=== PATIENT | male | born 1990 | race Caucasian/White ===

== ENCOUNTER 2017-02-25 18:35 | Inpatient (IN) | payer OTHER ==
[~2017-02-25] VITALS: Ht 160 cm; Wt 68.0 kg
--- NOTE | ~2017-02-25 | PN ---
Unit #: [id number] #: [id number] Patient: ARJUN GÓMEZ [id number] [facility] [address] [place] [address] [id number] MR#: [id number] NAME: ARJUN GÓMEZ ROOM: [facility] Age: 26 Sex: M Admission Date: 02/25/2017 : 1990 Attending Physician: Vipul Atwood M.D. Admitting Physician: Vipul Atwood M.D. Primary Care Physician: Primary Care Physician Tonja SARMIENTO PROGRESS NOTES DATE 02/27/2017 DISCUSSION Arjun Gómez is a 26-year-old male. The patient interviewed, chart reviewed. Obtained information from nursing staff. The patient compliant and cooperative. Mood sad, dysphoric, flat affect but able to answer questions appropriately. Vital signs stable 98.4, 56, 98/60. The patient tolerating medication fairly well but still sad, depressed, withdrawn, isolative, guarded. Complete review of systems unremarkable. MENTAL STATUS EXAMINATION General appearance, the patient dressed casually. Attention span and concentration fair. Oriented to time, place and person. Mood and affect labile. Speech monotone. Thought process concrete. The patient denied any thoughts of harming self or others. Recent and remote memory poor. Insight and judgement poor. DIAGNOSES Mood disorder NOS. ASSESSMENT/PLAN Advise to continue with current combination of Prozac, Zyprexa, and trazodone. If needed consider further adjustment of medication. Dictated by... Diony Rankin/ld TD: 03/01/2017 23:47 JOB #: [id number] Unit #: [id number] #: [id number] Patient: ARJUN GÓMEZ TORSTEN PROGRESS NOTES Page 1 of 1 X Vipul Atwood MD PROGRESS NOTE
--- NOTE | ~2017-02-25 | PN ---
Unit #: [id number] #: [id number] Patient: ARJUN GÓMEZ [id number] [facility] [address] [place] [address] [id number] I MR#: [id number] NAME: ARJUN GÓMEZ ROOM: 84 Age: 26 Sex: M Admission Date: 02/25/2017 : 1990 Attending Physician: Vipul Atwood M.D. Admitting Physician: Vipul Atwood M.D. Primary Care Physician: Primary Care Physician Tonja SARMIENTO PROGRESS NOTES DATE 02/26/2017 DISCUSSION Arjun Gómez is a 26-year-old male seen on 02/26/2017. Patient interviewed. Chart reviewed. Obtained information from nursing staff. Patient was compliant, cooperative. Mood sad, depressed, withdrawn, isolated, paranoid. Complete review of system unremarkable. MENTAL STATUS EXAMINATION General appearance, patient dressed casually. Attention span, concentration fair. Oriented in time, place and person. Mood and affect labile. Speech monotone. Thought process concrete, withdrawn, isolative, guarded, suicidal ideation. Recent and remote memory poor. Insight and judgement poor. DIAGNOSES 1. Mood disorder NOS. 2. Psychosis NOS. 3. Cannabis abuse, moderate. ASSESSMENT/PLAN Advised to start patient on Prozac 20 mg daily, Zyprexa 5 mg at bedtime. If needed, consider further adjustment of medication. Continue with inpatient programming. Dictated by... Diony Rankin/ajit TD: 02/27/2017 16:52 JOB #: [id number] Unit #: [id number] #: [id number] Patient: ARUJN GÓMEZ PROGRESS NOTES Page 1 of 1 X Vipul Atwood MD X PROGRESS NOTE
--- NOTE | ~2017-02-25 | PN ---
Unit #: [id number] #: [id number] Patient: ARJUN GÓMEZ [id number] [facility] [address] [place] [address] [id number] I MR#: [id number] NAME: ARJUN GÓMEZ ROOM: 84 Age: 26 Sex: M Admission Date: 02/25/2017 : 1990 Attending Physician: Vipul Atwood M.D. Admitting Physician: Diony Rankin NOTES DATE OF SERVICE: 02/27/2017 DISCUSSION Arjun Gómez is a 26-year-old male. The patient interviewed, chart reviewed, and obtained information from nursing staff. The patient was compliant and cooperative. Mood is sad, dysphoric, flat affect, but able to answer questions appropriately. Vital signs; stable. Temperature 98.4, pulse 56, blood pressure 98/60. The patient is tolerating medication fairly well, but still sad, depressed, withdrawn, isolative, guarded. REVIEW OF SYSTEMS Complete review of systems unremarkable. MENTAL STATUS EXAMINATION General appearance, the patient dressed casually. Attention span and concentration, fair. Oriented in time, place, and person. Mood and affect, labile. Speech, monotone. Thought process, concrete. The patient denied any thoughts of harming self or others. Recent and remote memory, poor. Insight and judgment, poor. DIAGNOSIS Mood disorder, not otherwise specified. ASSESSMENT AND PLAN Advised to continue with current combination of Prozac, Zyprexa, and trazodone. If needed, consider further adjustment of medication. Dictated by... Diony Rankin/yo TD: 03/02/2017 01:56 JOB #: [id number] Unit #: [id number] #: [id number] Patient: ARJUN GÓMEZ TORSTEN JARRELL NOTES Page 1 of 1 X Vipul Atwood MD PROGRESS NOTE
--- NOTE | ~2017-02-25 | HP ---
Unit #: [id number] #: [id number] Patient: ARJUN BEAVER [id number] [place] [address] [id number] MR#: [id number] NAME: ARJUN BEAVER ROOM: P184 Age: 26 Sex: M Admission Date: 02/25/2017 : 1990 Attending Physician: Vipul Atwood M.D. Admitting Physician: Vipul Atwood M.D. Primary Care Physician: Primary Care Physician No HISTORY AND PHYSICAL History and physical completed on 02/26/2017. HISTORY OF PRESENT ILLNESS Arjun is a 26-year-old male, admitted on 02/25/2017 to [facility] for depression and suicidal ideation. PAST MEDICAL HISTORY None. PAST SURGICAL HISTORY None. SOCIAL HISTORY Denies tobacco, alcohol, or illegal drug use. He is currently single and living with his mother. FAMILY HISTORY Noncontributory. REVIEW OF SYSTEMS CONSTITUTIONAL: No fever or chills. HEENT: Denies any sore throat, ear pain or runny nose. CARDIOVASCULAR: Denies chest pain, irregular heart rhythm or palpitations. CHEST: Denies shortness of breath or cough. No hemoptysis. GASTROINTESTINAL: Denies nausea, vomiting, diarrhea or chronic constipation. ENDOCRINE: Denies history of increased thirst or urination. No recent significant weight loss or gain. GENITOURINARY: Denies dysuria, frequency, or hematuria. SKIN: Denies any rashes. HEMATOLOGIC: Denies history of increased bleeding or bruising. MUSCULOSKELETAL: Denies any hot, swollen joints. No generalized muscle pain. NEUROLOGIC: Denies problems with vision or speech. No frequent, severe headaches. No numbness, tingling or weakness in any extremities. Denies loss of bladder or bowel control. CURRENT MEDICATIONS None. ALLERGIES None. Unit #: [id number] #: [id number] Patient: ARJUN BEAVER PHYSICAL EXAMINATION GENERAL: Alert, oriented, no acute distress. VITAL SIGNS: Blood pressure 125/68, heart rate 88, respirations 16, and temperature 97.9. HEIGHT: 5 feet 3 inches. WEIGHT: 150 pounds. SKIN: Warm and dry without rash or lesion. HEENT: Normocephalic. TMs not viewed. Oral and nasal passages clear. Conjunctivae clear. PERRLA. EOMs intact. NECK: Supple without lymphadenopathy or thyromegaly. HEART: Regular rate and rhythm without murmur. LUNGS: Clear. ABDOMEN: Soft, nontender. : Not done. EXTREMITIES: No evidence of cyanosis, clubbing or edema. Moves all without focal deficit. NEUROLOGICAL: Grossly within normal limits. Cranial Nerves: II: Visual sorenson are intact. III, IV AND : Extraocular movements are intact. Pupils are equal, round and reactive to light. V: Facial sensation is grossly normal. VII: Facial movements and expression are normal. VIII: Auditory acuity grossly intact. IX, X: Uvula is midline. Phonation is normal. XI: Patient shrugs shoulders and turns head normally. XII: Tongue protrudes in the midline. Sensory and Motor Function: Sensory and motor sensation is grossly normal. Motor: moves all extremities well. Coordination: Gait is normal. Deep Tendon Reflexes: Intact. IMPRESSION Psychiatric admission. RECOMMENDATIONS Psychiatric, per psychiatrist. MEDICAL No contraindications to participating in facility's activities. MEDICAL PROGNOSIS Good. MEDICAL CONDITION Stable. Dictated by... Adamaris López/pito TD: 02/27/2017 05:36 JOB #: [id number] Unit #: [id number] #: [id number] Patient: ARJUN BEAVER HISTORY AND PHYSICAL Page 1 of 1 X DARYN FORTE APRN X HISTORY AND PHYSICAL
--- NOTE | ~2017-02-25 | PN ---
Unit #: [id number] #: [id number] Patient: ARJUN GÓMEZ [id number] [facility] [address] [place] [address] [id number] I MR#: [id number] NAME: ARJUN GÓMEZ ROOM: 84 Age: 26 Sex: M Admission Date: 02/25/2017 : 1990 Attending Physician: Vipul Atwood M.D. Admitting Physician: Vipul Atwood M.D. Primary Care Physician: Primary Care Physician Tonja JARRELL NOTES DATE 02/28/2017 DISCUSSION Arjun Gómez is a 26-year-old male, seen on 02/28/2017. The patient interviewed, chart reviewed, and obtained information from the nursing staff. The patient was compliant and cooperative. Mood was labile. The patient was still somewhat mad, angry, upset. Vital signs, 98.4, 61, and 95/62. The patient reports that he does not want to be in the mad house, crazy house. The patient scheduled to have a family session this afternoon, talked to the patient's mom over the phone, telephone number [phone], with the patient's permission and mom was concerned about the patient's behavior lately, and will visit this afternoon. REVIEW OF SYSTEMS Complete review of systems unremarkable. MENTAL STATUS EXAMINATION General appearance: Patient dressed in hospital attire. Attention span and concentration, fair. Oriented in time, place, and person. Mood and affect, sad and dysphoric. Mood labile. Speech, monotone. Thought process, concrete. The patient denied any thoughts of harming self or others but mood lability, irritability. Recent and remote memory, poor. Insight and judgment, poor. DIAGNOSIS Bipolar mood disorder, NOS. ASSESSMENT/PLAN Advised to continue with the current medication and if needed consider further adjustment of medication. The patient is currently on Prozac, Zyprexa, and trazodone combination. Dictated by... Vipul Atwood M.D. Unit #: [id number] #: [id number] Patient: ARJUN GÓMEZ RAY/pito TD: 03/02/2017 07:44 JOB #: [id number] [facility] PROGRESS NOTES Page 1 of 1 X Vipul Atwood MD PROGRESS NOTE
--- NOTE | ~2017-02-25 | DS ---
Unit #: [id number] #: [id number] Patient: CYDNEY BEAVER [id number] [facility] [address] [place] [address] [id number] I MR#: [id number] NAME: CYDNEY BEAVER ROOM: 84 Age: 26 Sex: M Admission Date: 02/25/2017 : 1990 Discharge Date: 03/02/2017 Attending Physician: Vipul Atwood M.D. Primary Care Physician: Primary Care Physician No DISCHARGE SUMMARY REASON FOR ADMISSION Depression. DIAGNOSTIC STUDIES LABORATORY RESULTS: Unremarkable. HOSPITAL COURSE The patient was admitted to inpatient unit on 02/25/2017 and discharged on 03/02/2017. The patient was treated on the inpatient unit with expressive therapy, psychoeducation, psychotherapy, structured milieu, and chemical dependency group. The patient showed improvement in his mood. Subsequently, the patient was discharged and follow up in outpatient program. DISCHARGE MEDICATIONS Zyprexa 5 mg at bedtime for mood stabilization and Prozac 20 mg at bedtime for depressive symptom. DISCHARGE DIAGNOSES Psychiatric: Major depressive disorder, recurrent, severe, F33.2; cannabis abuse, moderate, F12.20. Secondary diagnosis: Deferred. Medical diagnosis: Obesity. Stressors: Psychosocial stressor. DISCHARGE INSTRUCTIONS The patient to follow up in outpatient clinic as per hospital social worker. CONDITION ON DISCHARGE The patient was pleasant and cooperative. Denied any psychotic symptom or any suicidal ideation. PROGNOSIS Guarded. DIET AND ACTIVITY As tolerated. Dictated by... Unit #: [id number] #: [id number] Patient: CYDNEY BEAVER Diony RankinC/ranjitl TD: 03/02/2017 17:50 JOB #: [id number] DISCHARGE SUMMARY Page 1 of 1 X Vipul Atwood MD X DISCHARGE SUMMARY
--- NOTE | ~2017-02-25 | PN ---
Unit #: [id number] #: [id number] Patient: ARJUN GÓMEZ [id number] [facility] [address] [place] [address] [id number] I MR#: [id number] NAME: ARJUN GÓMEZ ROOM: 84 Age: 26 Sex: M Admission Date: 02/25/2017 : 1990 Attending Physician: Vipul Atwood M.D. Admitting Physician: Diony Rankin PROGRESS NOTES DATE OF SERVICE: 03/01/2017 DISCUSSION Arjun Gómez is a 26-year-old male, seen on 03/01/2017. The patient interviewed, chart reviewed, and obtained information from nursing staff. The patient's vital signs stable; temperature 98.4, heart rate 75, and blood pressure 108/74. The patient's mood was labile, anxious, nervous and became agitated, yelling at the person, but redirectable. REVIEW OF SYSTEMS Complete review of systems unremarkable. MENTAL STATUS EXAMINATION General appearance, the patient dressed in hospital attire. Attention span and concentration, poor. Oriented in place and person. Mood and affect, labile. Speech, monotone. Thought process, concrete. The patient denied any thoughts of harming self or others, but mood lability. Recent and remote memory, poor. Insight and judgment, poor. DIAGNOSIS Bipolar mood disorder, not otherwise specified. ASSESSMENT AND PLAN Advised to continue with current medication and therapeutic protocol. If needed, consider further adjustment of medication. Dictated by... Diony Rankin/yo TD: 03/01/2017 17:24 JOB #: [id number] Unit #: [id number] #: [id number] Patient: ARJUN GÓMEZ TORSTEN JARRELL NOTES Page 1 of 1 X Vipul Atwood MD PROGRESS NOTE
--- NOTE | ~2017-02-25 | PA ---
Unit #: [id number] #: [id number] Patient: ARJUN GÓMEZ [id number] [facility] [address] [place] [address] [id number] I MR#: [id number] NAME: ARJUN GÓMEZ ROOM: P184 Age: 26 Sex: M Admission Date: 02/25/2017 : 1990 Date of Assessment: 02/26/2017 Attending Physician: Vipul Atwood M.D. Admitting Physician: Vipul Atwood M.D. Primary Care Physician: Primary Care Physician No PSYCHIATRIC ASSESSMENT INFORMANTS The patient reliability, fair informant and chart reliability, good. CHIEF COMPLAINT Depression. HISTORY OF PRESENT ILLNESS Arjun Gómez is a 26-year-old male, presented with the above-mentioned complaint. The patient received outpatient services through [facility]. Lives at home with mother. The patient presented with depressive symptom. He stated that he left work early as he was not mentally healthy. The patient reported fluctuating appetite, racing thoughts, crying often. 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 The patient reported having racing thoughts, mood lability, thoughts of harming himself. Mother reported that two days ago he stated he will kill himself and take her too and her dog. The patient reported not feeling safe, having suicidal ideation. Denied any homicidal ideation. Somewhat guarded, paranoid, and racing thoughts. Needing inpatient admission at this time for psychiatric stabilization. PAST PSYCHIATRIC HISTORY Remarkable for history of outpatient services through [facility]. No history of any suicide attempt or any inpatient treatment. FAMILY HISTORY AND SOCIAL HISTORY The patient lives with mother, has a good support system. Family psychiatric illness is remarkable for history of heroin abuse in sister. MEDICAL HISTORY Unremarkable for any chronic medical illness. Musculoskeletal; muscle strength and tone, no atrophy or abnormal movement. Gait normal. MEDICATION HISTORY None. ALLERGIES No known drug allergies. SUBSTANCE ABUSE HISTORY History of marijuana abuse, age of onset 24, occasional use. History of blackout. No history of any IV drug abuse, HIV, hepatitis, or withdrawal symptom. Unit #: [id number] #: [id number] Patient: ARJUN GÓMEZ REVIEW OF SYSTEMS HEENT: Eyes, clear. Ears, nose, mouth, and throat; clear. CARDIOVASCULAR: Unremarkable. RESPIRATORY: Unremarkable. GI: Unremarkable. : Unremarkable. SKIN: Unremarkable. LYMPH NODE: Unremarkable. NEUROLOGIC: Unremarkable. ENDOCRINE: Unremarkable. HEMATOLOGIC: Unremarkable. ALLERGIC/IMMUNOLOGIC: Unremarkable. MUSCULOSKELETAL: Muscle strength and tone, no atrophy or abnormal movement. Gait normal. MENTAL STATUS EXAMINATION CONSTITUTIONAL: Measurement of vital signs; temperature 98.4, heart rate 66, respiratory rate 16, oxygen saturation 100%, and blood pressure 110/63. Height 5 feet 3 inches and weight 150 pounds. GENERAL APPEARANCE: The patient dressed casually. The patient did not show any facial deformity. MUSCULOSKELETAL: Please see above. PSYCHIATRIC EXAMINATION Description of speech; regular rate, normal volume, normal articulation, and coherent. Description of thought process, circumstantial. Description of association; guarded, paranoid, mood lability, sad, depressed, and suicidal ideation. Description of the patient's judgment: Concerning everyday activity, poor. Social situation, poor. Concerning psychiatric condition, poor. Complete mental status examination; oriented in time, place, and person. Recent and remote memory, fair. Attention span and concentration, fair. Language, able to name object and repeat phrases. Fund of knowledge, aware of current event and passive vocabulary intact. Mood and affect, sad and dysphoric. Insight and judgment, fair to poor. ASSETS AND LIABILITIES Assets, the patient is articulate and able to take care of his ADL. Liability, history of depression and suicidal ideation. ADMITTING DIAGNOSES Psychiatric: Major depressive disorder, recurrent, severe; cannabis abuse, moderate, F12.20; and rule out psychosis, not otherwise specified. Secondary diagnosis: Deferred. Medical diagnosis: None. Stressors: Psychosocial stressors. PSYCHIATRIC PLAN AND TREATMENT GOAL AND DISCHARGE PLAN 1. Advised to admit the patient on the inpatient unit. Provide safe, supportive, and structured environment. 2. Ordered labs; CBC, CMP, UA, and UDS. 3. Precaution for aggression, self-harm, and psychosis. 4. The patient to attend all the programing. Consider medication for mood symptom and psychosis. The patient to attend group therapy, Unit #: [id number] #: [id number] Patient: ARJUN GÓMEZ individual therapy, family session, and chemical dependency group. TREATMENT GOAL To attain euthymic mood, gain insight into his problem, and learn coping skills. DISCHARGE PLAN Plan to stabilize the patient and consider followup in outpatient program. ESTIMATED LENGTH OF STAY 3 to 5 days. Dictated by... Diony Rankin/yo TD: 02/26/2017 19:47 JOB #: [id number] PSYCHIATRIC ASSESSMENT Page 1 of 1 X Vipul Atwood MD PSYCHIATRIC ASSESSMENT
[2017-02-26 09:36] LABS: BASOPHIL# 0.1 X10e3 (0-0.3); BASOPHIL% 0.8 % (0-2.5); EOSINOPHIL# 0.4 X10e3 (0-0.7); EOSINOPHIL% 4.4 % (0.0-7.0); HEMATOCRIT 48.1 % (38.0-50.0); HEMOGLOBIN 15.9 gm/dL (13.0-16.0); LYMPHOCYTE# 2.1 X10e3 (1.0-3.5); LYMPHOCYTE% 21.6 % (17.0-45.0); MEAN CELL VOLUME 89.6 FL (83-96); MEAN CORPUSCULAR HEMOGLOBIN 29.6 PG (28-34); MEAN CORPUSCULAR HGB CONC 33.1 g/dL (30-36); MEAN PLATELET VOLUME 8.4 FL (6.5-11.5); MONOCYTE# 0.8 X10e3 (0-1.0); MONOCYTE% 8.6 % (3.0-12.0); NEUTROPHIL# 6.4 X10e3 (1.5-7.1); NEUTROPHIL% 64.6 % (40-75); PLATELET COUNT 337 X10e3 (140-420); RED BLOOD COUNT 5.38 X10e (3.90-5.60); RED CELL DISTRIBUTION WIDTH 13.5 % (11.0-15.5); WHITE BLOOD COUNT 9.9 X10e3 (4.0-10.5)
[2017-02-26 09:52] LABS: DIFF IND NO
[2017-02-26 10:10] LABS: BILIRUBIN,TOTAL 0.3 mg/dL (0.2-2.0); CALCIUM SERUM 9.3 mg/dL (8.4-10.2); CREATININE SERUM 0.8 mg/dL (0.6-1.4); GLOM FILT RATE Estimated 123.3 mL/min (>60); POTASSIUM 4.9 mmol/L (3.5-5.1); PROTEIN TOTAL SERUM 6.8 g/dL (6.0-8.3)
[2017-03-01 12:21] LABS: URINE APPEARANCE CLEAR; URINE BILIRUBIN NEG (NEG); URINE BLOOD NEG (NEG); URINE COLOR YELLOW; URINE GLUCOSE NEG (NEG); URINE KETONE NEG (NEG); URINE LEUKOCYTE ESTERASE NEG (NEG); URINE NITRATE NEG (NEG); URINE PH 5.5 (5-8); URINE PROTEIN NEG (NEG); URINE SPECIFIC GRAVITY 1.005 (1.003-1.035); URINE UROBILINOGEN 0.2 MG/DL (NEG)
[2017-03-01 12:37] LABS: AMPHETAMINE NEG (NEG); BARBITURATES NEG (NEG); BENZODIAZEPINES NEG (NEG); COCAINE NEG (NEG); MARIJUANA NEG (NEG); OPIATES NEG (NEG); TRICYCLIC ANTIDEPRESSANTS NEG (NEG); U METHADONE NEG (NEG)
== END 2017-03-02 12:15 | DRG 885 ==
LOC: P1E 21:26
PROVIDERS: Psychiatry & Neurology Psychiatry
DX: F33.2 Major depressive disorder, recurrent severe without psychotic features (principal); R45.851 Suicidal ideations; F39 Unspecified mood [affective] disorder; F12.20 Cannabis dependence, uncomplicated; F29 Unspecified psychosis not due to a substance or known physiological condition; E66.9 Obesity, unspecified; Z68.26 Body mass index [BMI] 26.0-26.9, adult
CPT/HCPCS: 80053; 80307; 81003; 85025